=== PATIENT | female | born 1975 | race Caucasian/White ===

== ENCOUNTER 2017-08-24 13:02 | Emergency (ER) | payer MEDICAID ==
[~2017-08-24] VITALS: Ht 157.5 cm; Wt 84.2 kg
[~2017-08-24 13:02] MED LIST: AMIT25TA PO; HYDR-3237 PO; HYDR25TA11 PO; IBUP-1223 PO; METH500T7 PO; PROP10TA PO; VENL225T PO
[2017-08-24] MEDS ORDERED: LIDOCAINE-MPF 1%, 5ML INFIL ONE (13:30)
[2017-08-24 14:10] VITALS: BP 149/107
[2017-08-24] MEDS ORDERED: ACETAMINOPHEN 500 MG TABLET ONE (14:20)
[2017-08-24] MEDS ORDERED: ACETAMINOPHEN 500 MG TABLET PO ONE (14:30)
== END 2017-08-24 14:36 | disposition home or self-care (01) ==
LOC: ED 14:30
DX: K04.7 Periapical abscess without sinus (principal); I10 Essential (primary) hypertension; E11.9 Type 2 diabetes mellitus without complications; M06.9 Rheumatoid arthritis, unspecified
CPT/HCPCS: 41800; 93005; 99283